=== PATIENT | male | born 1975 | race Caucasian/White ===

== ENCOUNTER 2018-08-07 14:24 | Emergency (ER) | payer BC, SELFPAY ==
[2018-08-07 14:25] VITALS: BP 156/90; PULSE 98; RESP 18; TEMP 36.3; BMI 24.3
--- NOTE | 2018-08-07 14:30 | RAD_ITS ---
STUDY: X-RAY - RIGHT ANKLE REASON FOR EXAM: Pain and swelling after a fall 1 day ago. TECHNIQUE: 3 view(s) of the ankle. COMPARISON: None. FINDINGS: There is chronic fracture deformity of the distal/mid tibial diaphysis, incompletely included in the [id number]. There is a mildly displaced oblique fracture of the distal fibula. Normal medial and lateral malleoli. There is mild widening of the medial ankle mortise. Normal visualized talus and calcaneus. The visualized subtalar, talonavicular, calcaneocuboid and tarsal articulations are normal. There is soft tissue swelling overlying the lateral malleolus. RAD/Ankle min 3 Views IMPRESSION: Distal fibular fracture with mild widening of the medial ankle mortise. Chronic fracture deformity of the tibial diaphysis. Electronically Signed: Geoffrey Tobin MD at 15:01 EDT Tel , Service support ,
--- NOTE | 2018-08-07 15:17 | ED.VIS.GEN ---
History of Present Illness Chief Complaint: Lower Extremity Injury Informant: Patient Onset: Yesterday Context: Sudden Onset - stepped in wet ground in the [place], rolled ankle Timing: Continuous Quality: pain Location: lateral aspect right ankle Current Severity: Moderate Maximum Severity: Severe Worsened by: WB'ing, walking Relieved by: rest Associated Symptoms: swelling/bruising to affected area Past Medical History Doctors: [facility] Past Medical History: None Drugs: None Review of Systems General: Denies: Chills, Fever Musculoskeletal: Reports: Swelling, Extremity Pain. Denies: Neck pain, Back pain Skin: Denies: Wounds Neurological: Denies: Weakness, Numbness Physical Exam Vital Signs/Narrative: Vital Signs Temp Pulse Resp BP 08/07/18 14:25 97.4 F L 98 18 156/90 H Inital Vital Signs reviewed: Yes General: Well nourished, Well developed, No Acute Distress Head: Normocephalic, Atraumatic Extremities: Tenderness - right lateral malleolus. no tenderness medial mall, base 5th MT, or mid or proximal fibula. limited ankle ROM due to pain/swelling. Skin: Normal color, No rash, Trauma - ecchymosis around right lateral malleolus, no openings in skin. Neurological: Alert, Oriented x3, Cranial nerves II-XII grossly intact, Normal Strength, Normal Sensation Psychological: Normal affect, Normal Mood Diagnostic/Tx/Re-eval Ankle x-ray read by myself shows distal fibular fracture with mild displacement, approximately 1.5 mm of lateral talar shift. - Medical Decision Making Patient appears to have a Agosto B ankle fracture with minimal lateral talar shift. Given that, he will need to be with nonweightbearing. Placed in a boot orthosis given appropriate discharge instructions with follow-up with orthopedics, discussed with Dr. Clemons. ED Disposition - Plan for ED Patient: Disposition: Home or Assisted Living Diagnosis: Closed fracture of right distal fibula Instructions: ED Fx Ankle Lateral Malleolus Prescriptions: Hydrocodone Bitart/Apap 5-325 [[place] 5MG-325MG] 1 tab PO Q4H PRN PRN 2 Days #10 tab PRN Reason: Pain Referrals: Kian Clemons DO [STAFF PHYSICIAN] - (call for appt to be seen within the next 1-2 weeks) Additional Instructions: You should NOT bear weight on your left foot. Use the crutches. The boot is for walking, but for you at this time, it is to be used as a device to immobilize your ankle, NOT to walk with.
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
== END 2018-08-07 16:15 | disposition home or self-care (01) ==
LOC: ED 15:47
PROVIDERS: Emergency Provider Emergency Medicine
DX: S82.831A Other fracture of upper and lower end of right fibula, initial encounter for closed fracture (principal); X50.1XXA Overexertion from prolonged static or awkward postures, initial encounter; Y93.9 Activity, unspecified; Y92.9 Unspecified place or not applicable
CPT/HCPCS: 73610; 99283

== ENCOUNTER 2018-08-22 05:54 | Day surgery (SDC) | payer BC, SELFPAY ==
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
[2018-08-22] VITALS (7 sets, daily range): BP systolic 118–168; BP diastolic 54–95; PULSE 75–104; RESP 16–22; TEMP 36.4–37.3; O2SAT 99–100; BMI 23.8
[2018-08-22] MEDS: Cefazolin 2 GM in 0.9% Normal Saline 100 ML IV (07:28)
--- NOTE | 2018-08-22 07:30 | RAD_ITS ---
STUDY: X-RAY - RIGHT ANKLE REASON FOR EXAM: Male, 43 years old. ORIF right ankle. TECHNIQUE: 11 C-arm view(s) of the ankle. 55.7 seconds fluoroscopy time. COMPARISON: None. FINDINGS: These limited field of view images show grossly satisfactory appearance of placement of compression plate and screws fixating ankle fractures into near anatomic alignment and position. Correlate with procedure note. Electronically Signed: Aldo Dominique MD at 16:51 EDT , Service support , RAD/Ankle min 3 Views
[2018-08-22] MEDS: Bupiv/Epi 0.5% Mpf 30 ML Vial (10:11)
--- NOTE | 2018-08-22 10:12 | RAD_ITS ---
STUDY: X-RAY - RIGHT ANKLE REASON FOR EXAM: Male, 43 years old. Status post distal fibula dictation. TECHNIQUE: 4 view(s) of the ankle. COMPARISON: Comparison is made with prior study dated August 07, 2018. FINDINGS: The patient is status post open reduction and internal fixation of the distal fibular fracture. There is good alignment. Normal tibiotalar articulation and ankle mortise. Stable deformity of the mid tibia anchored with healed fracture. Normal visualized talus and calcaneus. The visualized subtalar, talonavicular, calcaneocuboid and tarsal articulations are normal. Postoperative soft tissue changes. RAD/Ankle min 3 Views IMPRESSION: Status post open reduction and internal fixation of the distal fibular fracture. Ankle mortise is symmetrical. Electronically Signed: Pk Ayala, at 12:25 EDT , Service support ,
--- NOTE | 2018-08-22 10:15 | PCM.DC.ORTHO ---
Discharge Activity: May Not Drive, May not drive while taking narcotic pain medications., May Not Shower, Use Walker, Use Crutches Ice area for (Minutes): 20 - apply ice behind right knee 20 minutes of each hour while awake Weight Bearing Status: No weight bearing Keep extremity elevated above heart level: Operative Extremity Call your doctor if your incision/area has: Sudden Increased Bleeding Call your doctor if you observe: Fever of 101 or Higher, Shortness of breath, Dizziness, Chest pain, Increased palpitations (irregular heartbeat), Calf discomfort Cleanse incision/area with: Keep Dressing Clean & Dry Allergies/Adverse Reactions: Allergies No Known Allergies Allergy (Verified 08/22/18 06:12) Medications to take at Discharge Acetaminophen 1,000 mg PO Q8 #30 tab 08/22/18 Oxycodone [Oxyir] 5 mg PO Q6H PRN PRN 7 Days #30 tab 08/22/18 The following prescriptions were given: Oxycodone [Oxyir] 5 mg PO Q6H PRN PRN 7 Days #30 tab PRN Reason: Pain Acetaminophen 1,000 mg PO Q8 #30 tab Primary Care Physician: [facility] [Primary Care Provider] - Test Results: Test results from this visit will be discussed in further detail at your follow-up appointment, if applicable. Please Follow Up With: Jyotsna Connolly DPM When: Please follow up next week at your previously scheduled post operative appt Proposed Discharge Date: 08/22/18
--- NOTE | 2018-08-22 10:18 | DCINST_ITS ---
Discharge Activity: May Not Drive, May not drive while taking narcotic pain medications., May Not Shower, Use Walker, Use Crutches Ice area for (Minutes): 20 - apply ice behind right knee 20 minutes of each hour while awake Weight Bearing Status: No weight bearing Keep extremity elevated above heart level: Operative Extremity Call your doctor if your incision/area has: Sudden Increased Bleeding Call your doctor if you observe: Fever of 101 or Higher, Shortness of breath, Dizziness, Chest pain, Increased palpitations (irregular heartbeat), Calf discomfort Cleanse incision/area with: Keep Dressing Clean & Dry Allergies/Adverse Reactions: Allergies No Known Allergies Allergy (Verified 08/22/18 06:12) Medications to take at Discharge Acetaminophen 1,000 mg PO Q8 #30 tab 08/22/18 Oxycodone [Oxyir] 5 mg PO Q6H PRN PRN 7 Days #30 tab 08/22/18 The following prescriptions were given: Oxycodone [Oxyir] 5 mg PO Q6H PRN PRN 7 Days #30 tab PRN Reason: Pain Acetaminophen 1,000 mg PO Q8 #30 tab Primary Care Physician: [facility] [Primary Care Provider] - Test Results: Test results from this visit will be discussed in further detail at your follow- up appointment, if applicable. Please Follow Up With: Jyotsna Connolly DPM When: Please follow up next week at your previously scheduled post operative appt Proposed Discharge Date: 08/22/18
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
== END 2018-08-22 12:00 | disposition home or self-care (01) ==
LOC: SDC 05:55 → AC 05:58
PROVIDERS: Referring Provider Podiatrist Foot & Ankle Surgery; Visit Provider Podiatrist Foot & Ankle Surgery
PROC: (CPT 27792; principal; 2018-08-22 07:10)
DX: S82.831A Other fracture of upper and lower end of right fibula, initial encounter for closed fracture (principal); X50.1XXA Overexertion from prolonged static or awkward postures, initial encounter; Y93.89 Activity, other specified; Y92.89 Other specified places as the place of occurrence of the external cause
CPT/HCPCS: 01480; 27792; 73610; 76000; C1713; J7120; J2405

== ENCOUNTER 2019-07-05 13:02 | Emergency (ER) | payer BC, OTHER, SELFPAY ==
[2018-08-22 06:14] VITALS: BMI 23.8
[2019-07-05 13:02] VITALS: BP 152/103; PULSE 101; RESP 16; TEMP 36.6; O2SAT 100; BMI 25.5
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
[2019-07-05 13:13] VITALS: BP 161/95
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
== END 2019-07-05 14:39 | disposition home or self-care (01) ==
PROVIDERS: Emergency Provider Emergency Medicine
DX: S62.345A Nondisplaced fracture of base of fourth metacarpal bone, left hand, initial encounter for closed fracture (principal); W22.01XA Walked into wall, initial encounter; Y93.9 Activity, unspecified; Y92.9 Unspecified place or not applicable
CPT/HCPCS: 29125; 73130; 99282